=== PATIENT | female | born 1975 | race American Indian/Alaskan Native ===

== ENCOUNTER 2017-10-17 18:12 | Emergency (ER) | payer OTHER ==
--- NOTE | 2017-10-17 18:54 | XRay Report ---
FINAL REPORT EXAM: XR CHEST ROUTINE 2V HISTORY: Shortness of breath COMPARISON: None available. FINDINGS:: Frontal and lateral views of the chest obtained. Cardiac silhouette is within normal limits. There is peribronchial cuffing and prominence of bronchovascular markings. No focal consolidation or effusion. No pneumothorax. Visualized bony thorax is grossly intact. IMPRESSION:: No focal consolidation. Findings concerning for asthma versus mild bronchitis.
[2017-10-17] MEDS ORDERED: ATROVENT IH ONE (19:24)
[2017-10-17] MEDS ORDERED: DELTASONE PO ONE (19:24)
[2017-10-17] MEDS ORDERED: PROVENTIL IH ONE (19:24)
[2017-10-17 19:28] LABS: BUN/Creatinine Ratio 11; Blood Urea Nitrogen 8 mg/dL (7-17); Calcium 9.3 mg/dL (8.4-10.2); Hemolysis Index 12
[2017-10-17 19:29] LABS: Basophils # (Auto) 0.1 K/mm3 (0.0-0.1); Eosinophils # (Auto) 0.7 K/mm3 (0.0-0.4); Eosinophils % (Auto) 10.7 % (0.0-4.3); Hematocrit 42.8 % (30.3-42.9); Hemoglobin 14.2 gm/dl (10.1-14.3); Lymphocytes # (Auto) 2.2 K/mm3 (1.2-5.4); Lymphocytes % (Auto) 35.7 % (13.4-35.0); Mean Corpuscular HGB Conc 33 % (30-34); Mean Corpuscular Hemoglobin 33 pg (28-32); Mean Corpuscular Volume 100 fl (79-97); Monocytes # (Auto) 0.5 K/mm3 (0.0-0.8); Monocytes % (Auto) 7.6 % (0.0-7.3); Platelet Count 369 K/mm3 (140-440); Red Blood Count 4.27 M/mm3 (3.65-5.03); Red Cell Distribution Width 16.3 % (13.2-15.2)
[2017-10-17] MEDS ORDERED: CATAPRES ONE (19:31)
--- NOTE | 2017-10-17 19:31 | Emergency Department Report ---
HPI - General Chief Complaint: Dyspnea/Respdistress Time Seen by Provider: 10/17/17 19:18 - HPI HPI: Room 19 The patient is a 42-year-old female presenting with a chief complaint of shortness of breath and cough. The patient states she's had a cough for 1 month. Patient states the cough was usually only in the morning. The patient states her cough has been productive of clear sputum. After being given Mucinex the coughing increased. Today the patient developed shortness of breath prompting her to come to the emergency department. The patient states she smokes 1/3 pack per day and has smoked since age 16 Location: Lungs Duration: [See above] Quality: Shortness of breath Severity: Moderate Modifying factors: [see above] Context: [see above] Mode of transportation: Unknown ED Past Medical Hx - Past Medical History Previous Medical History?: Yes Hx Hypertension: Yes (no meds) - Surgical History Past Surgical History?: No - Family History Family history: no significant - Social History Smoking Status: Current Every Day Smoker (1/3 pack per day) Substance Use Type: Alcohol (moderate) - Medications Home Medications: Home Medications Medication Instructions Recorded Confirmed Last Taken Type methylPREDNISolone [Medrol Dose 8 mg PO QAM #1 tab.ds.pk 09/04/14 Unknown Rx Josee] Acetaminophen/Codeine [Tylenol 1 tab PO TID PRN #15 tab 09/12/14 Unknown Rx /Codeine # 3 tab] Clindamycin [Clindamycin Oral] 450 mg PO QID #28 capsule 09/12/14 Unknown Rx ALBUTEROL Inhaler [Proair] 2 puff IH QID PRN #1 inhalation 10/17/17 Unknown Rx Azithromycin [Zithromax Z-JOSEE] 0 mg PO DAILY #6 tab 10/17/17 Unknown Rx Prednisone [predniSONE 10 mg 10 mg PO .TAPER #1 tab.ds.pk 10/17/17 Unknown Rx (6-Day Pack, 21 Tabs)] amLODIPine [Norvasc] 5 mg PO DAILY #90 tab 10/17/17 Unknown Rx ED Review of Systems ROS: Stated complaint: COUGH/SHORTNESS OF BREATH Other details as noted in HPI Constitutional: no symptoms reported Eyes: denies: eye pain ENT: denies: throat pain Respiratory: cough, shortness of breath Cardiovascular: denies: chest pain Gastrointestinal: denies: abdominal pain Genitourinary: denies: dysuria Musculoskeletal: back pain Neurological: denies: headache Physical Exam - Physical Exam Vital Signs: Vital Signs 10/17/17 18:16 Temperature 98.8 F Pulse Rate 106 H Respiratory 22 Rate Blood Pressure 186/112 O2 Sat by Pulse 98 Oximetry Physical Exam: GENERAL: The patient is well-developed well-nourished female lying on stretcher not appearing to be in acute distress. [] HEENT: Normocephalic. Atraumatic. Extraocular motions are intact. Patient has moist mucous membranes. NECK: Supple. Trachea midline CHEST/LUNGS: Diffuse wheezing. There is no respiratory distress noted. HEART/CARDIOVASCULAR: Regular. There is no tachycardia. There is no gallop rub or murmur. ABDOMEN: Abdomen is soft, nontender. Patient has normal bowel sounds. There is no abdominal distention. SKIN: There is no rash. There is no edema. There is no diaphoresis. NEURO: The patient is awake, alert, and oriented. The patient is cooperative. The patient has normal speech MUSCULOSKELETAL: There is no evidence of acute injury. ED Course Vital Signs 10/17/17 18:16 Temperature 98.8 F Pulse Rate 106 H Respiratory 22 Rate Blood Pressure 186/112 O2 Sat by Pulse 98 Oximetry - Reevaluation(s) Reevaluation #1: 10/17/17 20:51 Patient improved. Patient states she feels great ED Medical Decision Making - Lab Data Result diagrams: 10/17/17 18:46 10/17/17 18:42 Laboratory Tests 10/17/17 10/17/17 18:42 18:46 WBC 6.2 RBC 4.27 Hgb 14.2 Hct 42.8 MCV 100 H MCH 33 H MCHC 33 RDW 16.3 H Plt Count 369 Lymph % (Auto) 35.7 H [place] % (Auto) 7.6 H Eos % (Auto) 10.7 H Baso % (Auto) 1.0 Lymph # 2.2 [place] # 0.5 Eos # 0.7 H Baso # 0.1 Seg Neutrophils % 45.0 Seg Neutrophils # 2.8 Sodium 142 Potassium 3.7 Chloride 100.8 Carbon Dioxide 27 Anion Gap 18 BUN 8 Creatinine 0.7 Estimated GFR > 60 BUN/Creatinine Ratio 11 Glucose 110 H Calcium 9.3 Troponin T < 0.010 - EKG Data -: EKG Interpreted by Me EKG shows normal: sinus rhythm Rate: tachycardia (102 bpm) - EKG Data When compared to previous EKG there are: previous EKG unavailable Interpretation: nonspecific ST-T wave jose - Radiology Data Radiology results: report reviewed (chest x-ray), image reviewed (chest x-ray) interpreted by me: Chest x-ray-no focal infiltrates, no pneumothorax - Medical Decision Making Patient counseled on quitting smoking and the effects of uncontrolled hypertension. Patient verbalized understanding - Differential Diagnosis acute bronchitis, COPD, pneumonia, reactive airway disease Critical care attestation.: If time is entered above; I have spent that time in minutes in the direct care of this critically ill patient, excluding procedure time. ED Disposition Clinical Impression: Acute bronchitis Disposition: - TO HOME OR SELFCARE Is pt being admited?: No Does the pt Need Aspirin: No Condition: Stable Instructions: How to Stop Smoking (ED), Acute Bronchitis (ED) Additional Instructions: Return to the emergency department immediately should you develop worsening symptoms, fever, inability to tolerate food or liquid or any other concerns. Prescriptions: ALBUTEROL Inhaler [Proair] 2 puff IH QID PRN #1 inhalation PRN Reason: Shortness Of Breath amLODIPine [Norvasc] 5 mg PO DAILY #90 tab Azithromycin [Zithromax Z-JOSEE] 0 mg PO DAILY #6 tab Prednisone [predniSONE 10 mg (6-Day Pack, 21 Tabs)] 10 mg PO .TAPER #1 tab.ds.pk Referrals: [facility] [Outside] - 3-5 Days JERONIMO SAVAGE MD [Staff Physician] - [facility] (Dr. Savage is a primary physician. Please follow up with him for further evaluation and to be established as a patient) Time of Disposition: 20:55
[2017-10-17] MEDS ORDERED: CATAPRES PO ONE (19:32)
[2017-10-17 20:42] VITALS: BP 178/95
== END 2017-10-17 21:08 | disposition home or self-care (01) ==
LOC: ED 18:12
DX: J20.9 Acute bronchitis, unspecified (principal); I10 Essential (primary) hypertension; F17.210 Nicotine dependence, cigarettes, uncomplicated
CPT/HCPCS: 36415; 71046; 80048; 84484; 85025; 93005; 93010; 94644; 99284; J7512

== ENCOUNTER 2018-11-09 10:32 | Emergency (ER) | payer OTHER ==
--- NOTE | 2018-11-09 10:43 | Emergency Department Report ---
ED CPR HPI - General Chief Complaint: Cardiac Arrest/CPR Stated Complaint: CARDIAC ARREST Time Seen by Provider: 11/09/18 10:43 Source: EMS (ems notes not available at time of chart dictation. Verbal report received from EMS) Mode of arrival: Stretcher Limitations: Physical Limitation - History of Present Illness Initial Comments: This is a 43-year-old female. The patient is not known to this provider previously. The patient is brought to the hospital by emergency medical services for out of hospital nontraumatic reported cardiac arrest. As per verbal report from EMS, last known well time is 5:30 in the morning. They report that they were contacted by family approximately 40 minutes prior to arrival to the emergency room. Patient intubated in the field. Pulses in the field, with initial rhythm of asystole. Patient receives standard ACLS interventions in the field, including 6 rounds of epinephrine, and multiple rounds of CPR. Patient also hypoglycemic in the field, EMS initiates dextrose therapy. Upon arrival to the ER, patient has been pulseless with EMS for approximately 35 minutes. Pupils midpoint and dilated. Patient continues to receive high quality CPR, and standard ACLS medications. Rhythm is persistently asystolic. Unfortunately, pulses cannot be obtained, and resuscitation efforts are terminated secondary to medical futility and prolonged downtime. Patient's family is subsequently informed. MD Complaint: stopped breathing -: minute(s) Place: home Initial Findings in the Field: no pulse ROSC in the Field: No Associated Injuries: No Treatments Prior to Arrival: intubation, chest compressions, epinephrine mgs #, glucose - Related Data Previous Rx's Medication Instructions Recorded Last Taken Type methylPREDNISolone [Medrol Dose 8 mg PO QAM #1 tab.ds.pk 09/04/14 Unknown Rx Josee] Acetaminophen/Codeine [Tylenol 1 tab PO TID PRN #15 tab 09/12/14 Unknown Rx /Codeine # 3 tab] Clindamycin [Clindamycin Oral] 450 mg PO QID #28 capsule 09/12/14 Unknown Rx ALBUTEROL Inhaler (OR & NICU) 2 puff IH QID PRN #1 inhalation 10/17/17 Unknown Rx [Proair] Azithromycin [Zithromax Z-JOSEE] 0 mg PO DAILY #6 tab 10/17/17 Unknown Rx Prednisone [predniSONE 10 mg 10 mg PO .TAPER #1 tab.ds.pk 10/17/17 Unknown Rx (6-Day Pack, 21 Tabs)] amLODIPine [Norvasc] 5 mg PO DAILY #90 tab 10/17/17 Unknown Rx Allergies Allergy/AdvReac Type Severity Reaction Status Date / Time No Known Allergies Allergy Unverified 09/04/14 09:14 ED Review of Systems ROS: Stated complaint: CARDIAC ARREST Other details as noted in HPI Comment: Unobtainable due to pts medical conditions ED Past Medical Hx - Past Medical History Hx Hypertension: Yes (no meds) - Social History Smoking Status: Current Every Day Smoker (1/3 pack per day) Substance Use Type: Alcohol (moderate) - Medications Home Medications: Home Medications Medication Instructions Recorded Confirmed Last Taken Type methylPREDNISolone [Medrol Dose 8 mg PO QAM #1 tab.ds.pk 09/04/14 Unknown Rx Josee] Acetaminophen/Codeine [Tylenol 1 tab PO TID PRN #15 tab 09/12/14 Unknown Rx /Codeine # 3 tab] Clindamycin [Clindamycin Oral] 450 mg PO QID #28 capsule 09/12/14 Unknown Rx ALBUTEROL Inhaler (OR & NICU) 2 puff IH QID PRN #1 inhalation 10/17/17 Unknown Rx [Proair] Azithromycin [Zithromax Z-JOSEE] 0 mg PO DAILY #6 tab 10/17/17 Unknown Rx Prednisone [predniSONE 10 mg 10 mg PO .TAPER #1 tab.ds.pk 10/17/17 Unknown Rx (6-Day Pack, 21 Tabs)] amLODIPine [Norvasc] 5 mg PO DAILY #90 tab 10/17/17 Unknown Rx ED Physical Exam - General General appearance: other (patient not responsive and not verbal. GCS of 3) - Head Head exam: Present: atraumatic, normocephalic - Eye Eye exam: Present: normal appearance, other (pupils are midpoint and do not react to light.) - ENT ENT exam: Present: mucous membranes moist, other (endotracheal tube is noted in the oropharynx) - Neck Neck exam: Present: normal inspection - Respiratory Respiratory exam: Present: other (no breath sounds, unless [id number] ventilation is) - Cardiovascular Cardiovascular Exam: Absent: normal heart sounds (patient is pulseless), s ystolic murmur, diastolic murmur, rubs, gallop - GI/Abdominal GI/Abdominal exam: Present: distended - External exam: Present: normal external exam - Extremities Exam Extremities exam: Present: normal inspection, other (intraosseous line noted in the lower extremity) - Back Exam Back exam: Present: normal inspection - Neurological Exam Neurological exam: Present: other (nonverbal, GCS of 3) - Psychiatric Psychiatric exam: Present: other (the patient is nonverbal) - Skin Skin exam: Present: intact ED Medical Decision Making - Medical Decision Making Differential diagnosis, including but not limited to: Acute coronary syndrome, arrhythmia, pulmonary embolism, intracranial hemorrhage, septicemia Critical care attestation.: If time is entered above; I have spent that time in minutes in the direct care of this critically ill patient, excluding procedure time. ED Disposition Clinical Impression: Cardiac arrest Disposition: [id number] Is pt being admited?: No Does the pt Need Aspirin: No Condition: Undetermined
[2018-11-09] MEDS ORDERED: ADRENALIN ONE (11:14)
== END 2018-11-09 11:33 ==
LOC: ED 10:32
DX: I46.9 Cardiac arrest, cause unspecified (principal); I10 Essential (primary) hypertension; F17.200 Nicotine dependence, unspecified, uncomplicated; Z79.899 Other long term (current) drug therapy
CPT/HCPCS: 82962; 92950; 99285; J0171